=== PATIENT | female | born 1970 | race Caucasian/White ===

== ENCOUNTER 2016-10-09 00:49 | Emergency (ER) | payer SELFPAY ==
[2016-10-09 01:02] VITALS: BP 147/89; PULSE 90; TEMP 98.1; BMI 36.3
[2016-10-09] MEDS ORDERED: Enoxaparin 1 mg per kg per dose SQ ONE (01:49)
--- NOTE | 2016-10-09 01:49 | EDPRACDOC ---
- General Information Chief Complaint: Lower Leg Pain Stated Complaint: RT LEG/SWELLING Information Source: Patient Mode Of Arrival: Car Home Medications: Home Medications Buspirone HCl [Buspar] 10 mg PO BID 03/09/14 Clonazepam [Klonopin] 0.5 mg PO TID 03/09/14 Ferrous Sulfate [Iron] 325 mg PO DAILY 03/09/14 Levothyroxine [Synthroid, Levoxyl] 50 mcg PO DAILY 03/09/14 Multivitamin [Multiple Vitamins] 1 each PO DAILY 03/09/14 Trazodone HCl 25 mg PO HS 03/09/14 Venlafaxine HCl [EFFEXOR Immed Release] 37.5 mg PO HS 03/09/14 Venlafaxine HCl [EFFEXOR Immed Release] 75 mg PO QAM 03/09/14 Lisinopril [Prinivil] 20 mg PO DAILY 06/28/14 Allergies/Adverse Reactions: Allergies Allergy/AdvReac Type Severity Reaction Status Date / Time No Known Allergies Allergy Verified 04/19/15 22:32 - History of Present Illness Onset: [employer] HPI: C/o sudden onset right casas pain this evening. Pain was accompanied with a shooting pain into chest, and "it took her breath away". Suffers from chronic fatigue syndrome and is often immobile for days as a result. Last episode of immobility was 4 days ago and pt was in bed for 5 days. Denies recent surgery, trauma, hormone supplements, cp,. Med hx = DM, HTN. Mechanism: Reports: Unknown Circumstances: Reports: None History of: Reports: None Severity: Reports: Moderate Able to Bear Weight: Fully Associated Signs & Symptoms: Reports: None Pain In: Reports: Leg (right lower casas) ED Past Medical History - History Reviewed Yes Nurses notes reviewed and agree except as marked - Patient Medical History Cardiac History: Reports: Hypertension Psychological History: Reports: Depression. Denies: Substance Use Disorder Systemic History: Reports: Anemia, Hypothyroidism. Denies: Cancer Surgical History: Denies: Hysterectomy - Family Medical History Reports: Hypertension, Cancer - Social Medical History Smoking Status: Never smoker Social History: Denies: Other Substance Use EDM Review of Systems - Review of Systems ROS Negative Except as Marked: Yes All systems reviewed and were negative except as marked Respiratory: Shortness of Breath Musculoskeletal: Leg (right casas pain) - Physical Exam Constitutional: No apparent distress, Alert Oriented to: Time, Person, Place Last recorded Vital Signs: Last Vital Signs Temp 98.1 F 10/09/16 00:59 Pulse 90 10/09/16 00:59 Resp 20 10/09/16 00:59 BP 147/89 10/09/16 00:59 Pulse Ox 98 10/09/16 00:59 Oxygen Pulse Oxygen Saturation 98 O2 Device Room Air Oxygen Flow Rate Fraction of Inspired Oxygen ( FIO2) - HEENT Head: Normal Eye Exam: negative: Conjunctival Injection, Scleral Icterus Oropharynx: negative: Drooling TMJ: Normal Nose: No Symptoms Reported Neck: Normal - Respiratory/Cardiovascular Respiratory: Normal - CTA Cardiovascular: Normal - GI Tenderness: Non tender - Musculoskeletal Back: Normal Extremities: Edema (mild), Pedal Pulse, Other (right dominant lower leg larger than left, mild redness). negative: Calf Tenderness - Integumentary Skin: Normal Decision Time to Discharge: 01:54 - Departure Disposition: Home Condition: Stable Final Diagnosis: Pain in right lower leg Instructions: Leg Edema (ED) Education/Counseling Given To: Patient Education/Counseling Given Regarding: Diagnosis, Treatment, Prognosis, Follow Up Referrals: Chong Brown MD [Primary Care Provider] - One Week Prescriptions: No Action Multivitamin [Multiple Vitamins] 1 each PO DAILY Clonazepam [Klonopin] 0.5 mg PO TID Buspirone HCl [Buspar] 10 mg PO BID Venlafaxine HCl [EFFEXOR Immed Release] 37.5 mg PO HS Venlafaxine HCl [EFFEXOR Immed Release] 75 mg PO QAM Trazodone HCl 25 mg PO HS Levothyroxine [Synthroid, Levoxyl] 50 mcg PO DAILY Ferrous Sulfate [Iron] 325 mg PO DAILY Lisinopril [Prinivil] 20 mg PO DAILY Additional Instructions: Return to ED at 7:30 am today for doppler ultrasound to rule out DVT. Return to ED before that if any new or worsening symptoms.
[2016-10-09] MEDS ORDERED: TRAMADOL HCL 50 MG TAB PO ONE (01:50)
[2016-10-09] MEDS ORDERED: ENOXAPARIN 100 MG PFS SQ ONE (02:00)
== END 2016-10-09 02:32 | disposition home or self-care (01) ==
LOC: ED 00:49
DX: M79.661 Pain in right lower leg (principal)
CPT/HCPCS: 96372; 99283; J1650; J3490